=== PATIENT | male | born 1990 | race Caucasian/White ===

== ENCOUNTER 2018-02-01 11:31 | Emergency (ER) | payer SELFPAY ==
[2018-02-01 12:45] LABS: PLATELET COUNT 238 10^3/uL (150-400)
--- NOTE | 2018-02-01 13:07 | EDPHY ---
H & P Stated Complaint: lump in RUQ, nausea, lighheaded Time Seen by Provider: 02/01/18 12:55 HPI/ROS: CHIEF COMPLAINT: Multiple complaints see HPI HISTORY OF PRESENT ILLNESS: 27-year-old male generally healthy arrives via private vehicle stating that for the past 3 months he has experienced intermittent chest pain, intermittent right upper quadrant pain and abdominal distension, and has noticed a "lump" in his right upper quadrant. This"lump"is nontender. Has not grown in size. No chest pain with exertion. No dyspnea with exertion. No cocaine use history. No back or flank pain. No syncope or near syncope. As he denies ever experiencing chest pain or dyspnea with exertion beyond that expected with active physical activity. REVIEW OF SYSTEMS: A ten point review of systems was performed and is negative with the exception of the items mentioned in the HPI PAST MEDICAL & SURGICAL HISTORY: Remote appendectomy history SOCIAL HISTORY: Intermittent marijuana smoking Family history: Mother with history multiple cardiac issues in her 30s, possible HI in her early 30s. PHYSICAL EXAM (Prior to examination, patient consented to physical exam, hands were washed and my usual and customary physical exam procedures followed) 1) GENERAL: Well-developed, well-nourished, alert and oriented. Appears to be in no acute distress. 2) HEAD: Normocephalic, atraumatic 3) HEENT: Pupils equal, round, reactive to light bilaterally. Sclera anicteric. Nasopharynx, oropharynx, clear, no lesions. Moist mucous membrane 4) NECK: Full range of motion, no meningeal signs. No bruit 5) LUNGS: Clear auscultation bilaterally, no wheezes, no rhonchi, no retractions. 6) HEART: Regular rate and rhythm, no murmur, no heave, no gallop. 7) ABDOMEN: No guarding, no rebound, no focal tenderness, negative McBurney's, negative Ludwig's, negative Rovsing's, negative peritoneal sign, particular attention paid to the area the patient has a "lump". This is a subcutaneous fat collection not consistent with lipoma, not consistent with abscess or infectious etiology. This area is extremely subtle. I am unable to elicit any abdominal pain on exam 8) MUSCULOSKELETAL: Moving all extremities, no focal areas of tenderness, no obvious trauma. No peripheral edema or discoloration. Negative Homans no palpable cord 9) BACK: No CVA tenderness, no midline vertebral tenderness, no fluctuance, no step-off, no obvious trauma, no visual or palpable abnormality. 10) SKIN: No rash, no petechiae. 11) Psychiatric: Patient is oriented X 3, there is no agitation. DIFFERENTIAL DIAGNOSIS: In no particular order, including but not limited to myocardial ischemia, pulmonary embolus, chest wall pain, pleural inflammation and pulmonary infectious causes. - Medical/Surgical History Hx Asthma: Yes Hx Chronic Respiratory Disease: No Hx Diabetes: No Hx Cardiac Disease: No Hx Renal Disease: No Hx Cirrhosis: No Hx Alcoholism: No Hx HIV/AIDS: No Hx Splenectomy or Spleen Trauma: No Other PMH: appy, asthma - Social History Smoking Status: Current some day smoker Constitutional: Initial Vital Signs Temperature (C) 36.7 C 02/01/18 11:40 Heart Rate 99 02/01/18 11:40 Respiratory Rate 18 02/01/18 11:40 Blood Pressure 144/76 H 02/01/18 11:40 O2 Sat (%) 98 02/01/18 11:40 O2 Delivery Mode Room Air Allergies/Adverse Reactions: No Known Allergies Allergy (Unverified 02/01/18 11:40) Home Medications: Medication Instructions Recorded NK [No Known Home Meds] 02/01/18 Medical Decision Making - Diagnostics Imaging Results: Imaging Impressions Chest X-Ray 02/01/18 13:03 Impression: Suspect airways disease. Otherwise negative. Images reviewed by myself ED Course/Re-evaluation: 1:06 p.m.: Doubt pulmonary embolus in presence of negative perc score. Will obtain laboratory studies on the patient including EKG chest x-ray and re- evaluated. At this time I think that acute cholecystitis or biliary etiology is less than likely. I saw this patient independently based on established practice protocols. Care of patient under supervision of secondary supervising physician Dr Koenig . I think this patient's symptoms less than likely represent cardiac and/or pulmonary etiology in the absence of significant risk factors. Doubt acute cholecystitis. Doubt acute surgical abdominal pathology. I do not think that further diagnostic studies are indicated from the emergency department. He specifically was concerned about the"lump"on his abdominal wall. Upon further evaluation this is more than likely likely an adipose tissue collection and less than likely represents hernia and less than likely represents infectious etiology such as abscess. - Data Points Laboratory Results: Laboratory Results 02/01/18 12:35 02/01/18 12:35 02/01/18 02/01/18 02/01/18 12:35 12:35 12:35 WBC 5.53 10^3/uL 10^3/uL (3.80-9.50) RBC 5.05 10^6/uL 10^6/uL (4.40-6.38) Hgb 15.0 g/dL g/dL (13.7-17.5) Hct 43.7 % % (40.0-51.0) MCV 86.5 fL fL (81.5-99.8) MCH 29.7 pg pg (27.9-34.1) MCHC 34.3 g/dL g/dL (32.4-36.7) RDW 12.3 % % (11.5-15.2) Plt Count 238 10^3/uL 10^3/uL (150-400) MPV 10.3 fL fL (8.7-11.7) Neut % (Auto) 60.0 % % (39.3-74.2) Lymph % (Auto) 27.3 % % (15.0-45.0) [place] % (Auto) 8.0 % % (4.5-13.0) Eos % (Auto) 3.6 % % (0.6-7.6) Baso % (Auto) 0.9 % % (0.3-1.7) Nucleat RBC Rel Count 0.0 % % (0.0-0.2) Absolute Neuts (auto) 3.32 10^3/uL 10^3/uL (1.70-6.50) Absolute Lymphs (auto) 1.51 10^3/uL 10^3/uL (1.00-3.00) Absolute Monos (auto) 0.44 10^3/uL 10^3/uL (0.30-0.80) Absolute Eos (auto) 0.20 10^3/uL 10^3/uL (0.03-0.40) Absolute Basos (auto) 0.05 10^3/uL 10^3/uL (0.02-0.10) Absolute Nucleated RBC 0.00 10^3/uL 10^3/uL (0-0.01) Immature Gran % 0.2 % % (0.0-1.1) Immature Gran # 0.01 10^3/uL 10^3/uL (0.00-0.10) Sodium 140 mEq/L mEq/L (135-145) Potassium 4.1 mEq/L mEq/L (3.3-5.0) Chloride 106 mEq/L mEq/L (97-110) Carbon Dioxide 25 mEq/l mEq/l (22-31) Anion Gap 9 mEq/L mEq/L (8-16) BUN 13 mg/dL mg/dL (7-23) Creatinine 0.7 mg/dL mg/dL (0.7-1.3) Estimated GFR > 60 Glucose 97 mg/dL mg/dL (70-100) Calcium 9.8 mg/dL mg/dL (8.5-10.4) Total Bilirubin 0.6 mg/dL mg/dL (0.1-1.4) AST 21 IU/L IU/L (17-59) ALT 32 IU/L IU/L (21-72) Alkaline Phosphatase 65 IU/L IU/L (38-126) Troponin I < 0.012 ng/mL ng/mL (0.000-0.034) Total Protein 7.6 g/dL g/dL (6.3-8.2) Albumin 4.8 g/dL g/dL (3.5-5.0) Lipase 39 IU/L IU/L (23-300) Departure - Departure Disposition: Home, Routine, Self-Care Clinical Impression: Chest pain Qualifiers: Chest pain type: other chest pain Qualified Code(s): R07.89 - Other chest pain ; R07.8 - Other chest pain Condition: Good Instructions: Chest Pain (ED) Additional Instructions: Seek medical attention if you develop new or worsening chest pain, if you develop new or worsening shortness of breath, or any other symptoms that concern you. Referrals: [facility],. [Clinic] - As per Instructions
--- NOTE | 2018-02-01 14:13 | CPEKG ---
Heart Rate: 82 RR Interval: 732 P-R Interval: 140 QRSD Interval: 100 QT Interval: 372 QTC Interval: 435 P Livingston: 66 QRS [place]ston: 79 T Wave Livingston: 50 EKG Severity - NORMAL ECG - EKG Impression: SINUS RHYTHM Electronically Signed By: Steven Mae 01-Feb-2018 21:36:00
[2018-02-01 14:41] VITALS: BP 106/70
== END 2018-02-01 14:41 | disposition home or self-care (01) ==
DX: R07.89 Other chest pain (principal); J45.909 Unspecified asthma, uncomplicated; F17.200 Nicotine dependence, unspecified, uncomplicated

== ENCOUNTER 2018-04-09 19:19 | Emergency (ER) | payer SELFPAY ==
[2018-04-09 19:27] VITALS: BP 142/89
--- NOTE | 2018-04-09 19:33 | EDPHY ---
H & P Stated Complaint: SOB/fatigue/neck pain Time Seen by Provider: 04/09/18 19:33 HPI/ROS: CHIEF COMPLAINT: Multiple complaints including ongoing intermittent sharp chest pain, a sensation of swelling in his throat and occasional painful swallowing HISTORY OF PRESENT ILLNESS: The patient has a history of several months of sharp intermittent chest pain. He was seen in the ED in the January and had a negative workup including a normal EKG, troponin and chest x-ray. The patient tells me he has a history of anxiety. He saw a provider Al who prescribed a SSRI which the patient took for 1 week but stopped secondary to worsening symptoms of anxiety. Since that time the patient has had a variety of vague symptoms. Tonight he was at work and was concerned about a slight discomfort he was having in his throat with some slight odynophagia. The patient denies any fever, cough or congestion. He denies any headache, numbness or weakness. He denies any history of fall or cervical manipulation. REVIEW OF SYSTEMS: A comprehensive 10 point review of systems is otherwise negative aside from elements mentioned in the history of present illness. Source: Patient Exam Limitations: No limitations - Personal History Current Tetanus/Diphtheria Vaccine: Yes - Medical/Surgical History Hx Asthma: Yes Hx Chronic Respiratory Disease: No Hx Diabetes: No Hx Cardiac Disease: No Hx Renal Disease: No Hx Cirrhosis: No Hx Alcoholism: No Hx HIV/AIDS: No Hx Splenectomy or Spleen Trauma: No Other PMH: appy, asthma - Social History Smoking Status: Current some day smoker - Physical Exam Exam: General Appearance: Anxious male, no acute distress Eyes: Pupils equal and round no pallor or injection ENT, Mouth: Mucous membranes moist, no or pharyngeal erythema, no peritonsillar mass or exudate, no stridor Respiratory: There are no retractions, lungs are clear to auscultation Cardiovascular: Regular rate and rhythm Gastrointestinal: Abdomen is soft and nontender, no masses, bowel sounds normal Neurological: A&O, normal motor function, normal sensory exam, normal cranial nerves Skin: Warm and dry, no rashes Musculoskeletal: Neck is supple nontender, no palpable adenopathy noted in the cervical chain Extremities: symmetrical, full range of motion Psychiatric: Patient is oriented X 3, there is no agitation Constitutional: Initial Vital Signs Temperature (C) 37.0 C 04/09/18 19:23 Heart Rate 118 H 04/09/18 19:23 Respiratory Rate 18 04/09/18 19:23 Blood Pressure 142/89 H 04/09/18 19:23 O2 Sat (%) 98 04/09/18 19:23 O2 Delivery Mode Room Air Allergies/Adverse Reactions: No Known Allergies Allergy (Unverified 04/09/18 19:26) Home Medications: Medication Instructions Recorded NK [No Known Home Meds] 02/01/18 Medical Decision Making ED Course/Re-evaluation: I reviewed the patient's past medical records. The patient presents to the ED with multiple vague symptomatic complaints. His chief complaint seems to be some pain in his throat and a perceived sensation of swelling. His physical examination demonstrates no acute abnormality. I certainly think it is possible he is having a globus sensation from underlying anxiety. I had a long discussion with him about this. At this point time I do not feel the laboratory testing or additional diagnostics are indicated. For completeness sake I have referred the patient to ENT for consideration of a fiberoptic laryngoscope. Additionally the patient has been provided the contact information for a primary care provider. Differential Diagnosis: Differential diagnosis considered includes pharyngitis, anxiety, globus sensation Departure - Departure Disposition: Home, Routine, Self-Care Clinical Impression: Neck pain Condition: Good Instructions: Neck Pain (ED) Additional Instructions: 1. I do recommend contacting the Ear Nose Throat physician you have been referred to tomorrow morning to schedule a office visit for consideration of a fiberoptic laryngoscope evaluation of your pharynx and larynx. 2. You have been given the contact number for [facility] [address]. I would highly recommend establishing a primary care relationship. [facility] works with people who have no insurance and limited financial means. Referrals: Zeke Ramirez MD [Medical Doctor] - As per Instructions [facility],. [Clinic] - As per Instructions
== END 2018-04-09 20:12 | disposition home or self-care (01) ==
DX: M54.2 Cervicalgia (principal); R07.9 Chest pain, unspecified; R07.0 Pain in throat; F17.200 Nicotine dependence, unspecified, uncomplicated

== ENCOUNTER 2018-11-03 22:44 | Emergency (ER) | payer OTHER ==
[2018-11-03] MEDS ORDERED: LIDOCAINE 2% VISCOUS 15 ML UDCUP PO ONE (23:31)
[2018-11-03] MEDS ORDERED: MAG HYDROX/AL HYDROX/SIMETH 30 ML UDCUP PO ONE (23:31)
[2018-11-03] MEDS ORDERED: HYOSCYAMINE SULFATE 0.125 MG TAB PO ONE (23:31)
[2018-11-03] MEDS ORDERED: FAMOTIDINE 20 MG TAB PO ONE (23:32)
[2018-11-03] MEDS ORDERED: LORazepam 1 MG TAB PO ONE (23:32)
--- NOTE | 2018-11-03 23:33 | EDPHY ---
H & P Stated Complaint: near syncope,chest tighness,nausea anxiety. Multiple past work ups negative Time Seen by Provider: 11/03/18 23:16 HPI/ROS: HPI: This is a 28-year-old male who presents with Chief Complaint: near syncope,chest tightness, nausea, anxiety. Multiple past work ups negative Location: Epigastric Quality: Burning sharp pain Duration: 30 min prior to arrival Signs and Symptoms: no shortness of breath at rest, no shortness of breath on exertion, no cough, no chest pain, no palpitations, no lower extremity edema, no wheezing, no orthopnea, no paroxysmal nocturnal dyspnea, no fever, no injury/ trauma, no hemoptysis, no carpal pedal spasms Timing: Acute on chronic Severity: Moderate Context: Patient reports that he has recently started seeing a primary care provider for his gastroesophageal reflux disease and started on Prilosec in the morning. Reports he ate dinner and then approximately 1 hr later started to experience epigastric burning sharp pain that radiated up into his throat. He reports that he felt cardiac awareness and then his heart started racing and he started to have "a panic attack." He reports that he has had panic attacks and chest pain in the past. He reports that he felt nauseous but no episode of vomiting, no diaphoresis, no shortness of breath, no lower extremity edema. No recent long distance travel. No history of coagulopathy and his family. Patient reports that he has not talked to his new primary care provider about his generalized anxiety disorder. Denies paranoia, homicidal ideation, suicidal ideation. Modifying Factors: Prilosec Comment: ROS: A comprehensive 10 system review of systems is otherwise negative aside from elements mentioned in the history of present illness. MEDICAL/SURGICAL/SOCIAL HISTORY: Medical history: Generalized anxiety disorder, GERD, asthma Surgical history: Denies Social history: Employed at [employer]. Tobacco user. CONSTITUTIONAL: Anxious, well-appearing adult white male, awake and alert, no obvious distress HEENT: Atraumatic and normocephalic, PERRL, EOMI. Nares patent; no rhinorrhea; no nasal mucosal edema. Tympanic membranes clear. Oropharynx clear, no exudate and moist pink mucosa. Airway patent. No lymphadenopathy. No meningismus. Cardiovascular: Normal S1/S2, regular rate, regular rhythm, without murmur rub or gallop. PULMONARY/CHEST: Symmetrical and nontender. Clear to auscultation bilaterally. Good air movement. No accessory muscle usage. ABDOMEN: Soft, nondistended, nontender, no rebound, no guarding, no peritoneal signs, no masses or organomegaly. No CVAT. EXTREMITIES: 2/2 pulses, strength 5/5, no deformities, no clubbing, no cyanosis or edema. NEUROLOGICAL: no focal neuro deficits. GCS 15. SKIN: Warm and dry, no erythema. no rash. Good capillary refill. Source: Patient, Old records Exam Limitations: No limitations - Personal History Current Tetanus/Diphtheria Vaccine: Unsure Current Tetanus Diphtheria and Acellular Pertussis (TDAP): Unsure - Medical/Surgical History Hx Asthma: Yes Hx Chronic Respiratory Disease: No Hx Diabetes: No Hx Cardiac Disease: No Hx Renal Disease: No Hx Cirrhosis: No Hx Alcoholism: No Hx HIV/AIDS: No Hx Splenectomy or Spleen Trauma: No Other PMH: appy, asthma, anxiety - Social History Smoking Status: Current some day smoker Constitutional: Initial Vital Signs Temperature (C) 37.1 C 11/03/18 22:51 Heart Rate 104 H 11/03/18 22:51 Respiratory Rate 20 11/03/18 22:51 Blood Pressure 153/102 H 11/03/18 22:51 O2 Sat (%) 98 11/03/18 22:51 O2 Delivery Mode Room Air Allergies/Adverse Reactions: No Known Allergies Allergy (Unverified 11/03/18 22:50) Home Medications: Medication Instructions Recorded Omeprazole 40 mg PO DAILY AT 6AM #30 11/03/18 capsule. Omeprazole Magnesium [Prilosec] 11/03/18 hydrOXYzine HCL [Vistaril 50MG 50 mg PO Q8 PRN #10 tab 11/03/18 (RX)] Medical Decision Making ED Course/Re-evaluation: Vital signs reviewed and show mild tachycardia and elevated blood pressure. Placed on user support specialist. EKG my read shows sinus rhythm with a rate of 96 beats per minute and no acute ischemic changes, no arrhythmias, no heart block. Wells criteria is low risk for pulmonary embolism. I believe that his chest pain is related to GERD and anxiety. Given GI cocktail, PO Pepcid 20 mg and PO Ativan 1 mg with complete relief of symptoms. Laboratory studies reviewed. No signs of leukocytosis/anemia/platelet dysfunction/RD/elevated LFTs/electrolyte imbalance/pancreatitis/ACS. This patient was seen under the supervision of my secondary supervising physician. I evaluated and cared for this patient with attending. Differential Diagnosis: Chest pain including but not limited to myocardial ischemia, pulmonary embolus, chest wall pain, pleural inflammation and pulmonary infectious causes. Departure - Departure Disposition: Home, Routine, Self-Care Clinical Impression: Chest pain due to GERD Anxiety disorder Qualifiers: Anxiety disorder type: generalized anxiety disorder Qualified Code(s): F41.1 - Generalized anxiety disorder Condition: Good Instructions: Gastroesophageal Reflux Disease (ED), Diet for Stomach Ulcers and Gastritis (ED), Generalized Anxiety Disorder (ED) Additional Instructions: Consume a minimum of 8-10 glasses of water or electrolyte fluid replacement drinks that include Gatorade, Powerade, Pedialyte. Eat a bland diet for the next 48 hours and then slowly advance as tolerated. Follow gastritis/GERD diet. Take Omeprazole 40 mg every morning. Take Hydroxyzine 25-50 mg every 8 hr as needed for anxiety. Please follow-up with your primary care provider regarding gastroesophageal reflux disease, generalized anxiety disorder. Follow-up with Cardiology in the next 5-7 days if symptoms persist. Return to the ER immediately if you experience new, continued or worsened chest pain, chest pain that radiates, chest pain accompanied by exertion or associated with shortness of breath, sweating, nausea, dizziness, back pain, or any other symptoms that concern you. Referrals: [facility],. [Clinic] - As per Instructions Kofi Irizarry MD [Medical Doctor] - As per Instructions Prescriptions: hydrOXYzine HCL [Vistaril 50MG (RX)] 50 mg PO Q8 PRN #10 tab PRN Reason: Anxiety Omeprazole 40 mg PO DAILY AT 6AM #30 capsule.
[2018-11-04 00:16] VITALS: BP 138/92
--- NOTE | 2018-11-04 08:03 | CPEKG ---
Test Reason : OPEN Blood Pressure : / mmHG Vent. Rate : 096 BPM Atrial Rate : 098 BPM P-R Int : 138 ms QRS Dur : 111 ms QT Int : 355 ms P-R-T Axes : 057 081 051 degrees QTc Int : 449 ms Sinus rhythm Confirmed by Jagdish Galvez ([id number]) on 11/04/2018 8:02:54 AM Referred By: PHYSICIAN ED Confirmed By:Jagdish Galvez
== END 2018-11-04 00:16 | disposition home or self-care (01) ==
DX: K21.9 Gastro-esophageal reflux disease without esophagitis (principal); F41.1 Generalized anxiety disorder; R11.0 Nausea